=== PATIENT | male | born 2000 | race Hispanic/Latino ===

== ENCOUNTER 2018-10-01 15:40 | Emergency (ER) | payer OTHER ==
[~2018-10-01] VITALS: Ht 175.3 cm; Wt 75.0 kg
--- NOTE | 2018-10-01 16:39 | REP ---
Clinical: Crush injury. Technique: AP, lateral, bilateral oblique views of the right fifth digit. Findings: Soft tissue swelling overlies the distal interphalangeal joint and distal phalanx. No foreign body. No obvious acute fracture. DIP joint appears intact. Impression: Soft tissue injury. No acute fracture or dislocation identified. Electronically Signed by Billy Crump MD 10/01/2018 04:30 P
[2018-10-01] MEDS ORDERED: LIDOCAINE 1% MDV 20ML VIAL IM ONE (17:15)
[2018-10-01] MEDS ORDERED: KEFL500C17 PO (17:44)
[2018-10-01 17:58] VITALS: BP 146/75
== END 2018-10-01 18:17 | disposition home or self-care (01) ==
LOC: M ED 15:40
DX: S61.316A Laceration without foreign body of right little finger with damage to nail, initial encounter (principal); W23.0XXA Caught, crushed, jammed, or pinched between moving objects, initial encounter; Y92.098 Other place in other non-institutional residence as the place of occurrence of the external cause

== ENCOUNTER 2020-10-28 15:40 | Emergency (ER) | payer OTHER ==
[~2020-10-28] VITALS: Ht 175.3 cm; Wt 82.0 kg
[2020-10-28 15:40] VITALS: BP 158/89
[~2020-10-28 15:40] MED LIST: KEFL500C17 PO
[2020-10-28] MEDS ORDERED: ACET-683 PO (15:50)
--- NOTE | 2020-10-28 16:21 | REP ---
INDICATION: trauma. COMPARISON: None. TECHNIQUE: Four views including PA chest. FINDINGS: PA chest radiograph is normal. There is no evidence of pneumothorax or hydrothorax. Mediastinum is not widened. Heart size is normal. Pulmonary vasculature is not increased. Lung hudson are clear. Multiple views of the left ribcage demonstrate no evidence of rib fracture. No bony destructive lesion is seen. No shoulder girdle fracture is appreciated. IMPRESSION: Negative radiographs of the left ribs. <Electronically signed by Kingston Whitney > 10/28/20 [id number]
[2020-10-28] MEDS ORDERED: NAPROXEN 250 MG TAB PO ONE (16:35)
[2020-10-28] MEDS ORDERED: LIDOCAINE 5% (LIDODERM) PATCH TD ONE (16:35)
[2020-10-28] MEDS ORDERED: LIDO5DIS41 TD (16:43)
[2020-10-28] MEDS ORDERED: NAPR-837 PO (16:43)
[2020-10-28] MEDS ORDERED: **NOTE PATIENT COMMENT** MISC XX SCH (21:00)
== END 2020-10-28 16:46 | disposition home or self-care (01) ==
LOC: M ED 15:40
DX: S20.219A Contusion of unspecified front wall of thorax, initial encounter (principal); W21.89XA Striking against or struck by other sports equipment, initial encounter; Y92.9 Unspecified place or not applicable; Y93.9 Activity, unspecified; Y99.9 Unspecified external cause status